=== PATIENT | male | born 1995 | race Hispanic/Latino ===

== ENCOUNTER 2022-02-08 14:12 | Emergency (ER) | payer OTHER ==
[~2022-02-08] VITALS: Ht 177.8 cm; Wt 163.3 kg
[~2022-02-08 14:12] MED LIST: CEPH500B PO; IBUP-2070 PO
[2022-02-08] MEDS ORDERED: AMOX/CLAV 875/125MG TAB PO ONE (14:30)
[2022-02-08] MEDS ORDERED: ACETAMINOPHEN 500 MG TABLET PO ONE (14:30)
[2022-02-08] MEDS ORDERED: MECLIZINE HCL 25 MG TABLET PO ONE (14:30)
[2022-02-08] MEDS ORDERED: TETANUS/DIPHTHERIA TOXOID [ADULT] 0.5 ML VIAL IM ONE (14:30)
[2022-02-08 14:48] LABS: BASOPHILS % (AUTO) 0.6 % (0.0-5.0); EOSINOPHILS % (AUTO) 2.5 % (0.0-8.0); HEMATOCRIT 45.7 % (42-54); LYMPHOCYTES % (AUTO) 26.2 % (21.0-51.0); MEAN CORPUSCULAR HEMOGLOBIN 26.7 pg (27.0-33.0); MEAN CORPUSCULAR VOLUME 80.9 fL (79-99); MONOCYTES % (AUTO) 5.9 % (3.0-13.0); NEUTROPHILS % (AUTO) 64.2 % (40.0-77.0); PLATELET COUNT (AUTO) 231 K/uL (130-400); RED BLOOD CELL COUNT(AUTO) 5.65 MIL/uL (4.50-6.20); RED CELL DISTRIBUTION WIDTH 12.8 % (11.0-15.5); WHITE BLOOD COUNT (AUTO) 8.6 K/uL (4.8-10.8)
[2022-02-08] MEDS ORDERED: 0.9%NACL 1000ML 1,000 ML IV ONE (15:00)
[2022-02-08 15:10] VITALS: BP 120/76
[2022-02-08 15:19] LABS: ALBUMIN 4.3 g/dL (3.5-5.0); BILIRUBIN,TOTAL 0.5 mg/dL (0.2-1.0); CREATININE 0.9 mg/dL (0.5-1.5); POTASSIUM 3.9 mmol/L (3.5-5.1); TOTAL PROTEIN, SERUM 8.2 g/dL (6.0-8.3)
[2022-02-08] MEDS ORDERED: AMOX1TAB16 PO (15:40)
[2022-02-08] MEDS ORDERED: ACET-2247 PO (15:40)
[2022-02-08] MEDS ORDERED: IBUP-1552 PO (15:40)
[2022-02-08] MEDS ORDERED: MECL-226 PO (15:40)
== END 2022-02-08 16:14 | disposition home or self-care (01) ==
LOC: EDH 14:12
DX: S00.03XA Contusion of scalp, initial encounter (principal); S61.452A Open bite of left hand, initial encounter; S61.552A Open bite of left wrist, initial encounter; S51.852A Open bite of left forearm, initial encounter; R42 Dizziness and giddiness; I95.1 Orthostatic hypotension; E66.01 Morbid (severe) obesity due to excess calories; Z68.43 Body mass index [BMI] 50.0-59.9, adult; W50.3XXA Accidental bite by another person, initial encounter; Y93.89 Activity, other specified; Y92.89 Other specified places as the place of occurrence of the external cause; Y99.8 Other external cause status
CPT/HCPCS: 36415; 73130; 80053; 82948; 85025; 90471; 90714; 96360; 99284; J7030